=== PATIENT | male | born 1965 | race Caucasian/White ===

== ENCOUNTER 2019-04-17 10:29 | Emergency (ER) | payer BC, OTHER ==
[2019-04-17 10:38] VITALS: TEMP 98.5; BMI 26.2
--- NOTE | 2019-04-17 10:43 | PDOC ---
History of Present Illness - General Chief Complaint: Pain, Acute Stated Complaint: LEFT FLANK PAIN Time Seen by Provider: 04/17/19 10:35 - History of Present Illness Initial Comments: 04/17/19 11:01 54yo male with L low back and L flank pain since night. States he was in bed when the pain started. States pain to L flank and L low back and radiates around to the L groin. No testicular or penile pain. States he thought he pulled his back and took motrin this am for the pain. States pain improved slightly but still with the pain. No loss of control of bowel or bladder. No midline pain or injury. No hip pain. No paresthesias, numbness/tingling, weakness to legs. No signs of cuade equina. Pt denies rashes. Pt states he also has urinary hesitancy. Denies hematuria or dysuria. No vomiting. Had a normal bm this AM. No f/c. No prior episodes of similar. Pt denies cp/sob. This am pain still present and radiating around to the groin - assoc with nausea, no vomiting. Pmhx: depression, migraine krishnamurthy pshx: cervical fusion all: nkda social: no tobacco, no drugs, no etoh Past History - Past Medical History Allergies/Adverse Reactions: Allergies Allergy/AdvReac Type Severity Reaction Status Date / Time No Known Allergies Allergy Verified 04/17/19 10:30 Home Medications: Ambulatory Orders Bupropion HCl [Wellbutrin -] 150 mg PO DAILY 07/28/16 Methocarbamol [Robaxin -] 500 mg PO BID PRN #14 tablet 04/17/19 Oxycodone HCl/Acetaminophen [Percocet 5-325 mg Tablet] 1 tab PO Q6H PRN #10 tablet MDD 4 tabs 04/17/19 Sertraline HCl [Zoloft -] 0 mg PO DAILY 04/17/19 propRANOLol HCL [Inderal] 10 mg PO DAILY 04/17/19 COPD: No CHF: No Psychiatric Problems: Yes (ANXIETY, DEPRESSION) - Suicide/Smoking/Psychosocial Hx Smoking History: Never smoked Hx Alcohol Use: No Drug/Substance Use Hx: No Review of Systems - Review of Systems Able to Perform ROS?: Yes Is the patient limited Yi proficient: No Constitutional: No: Chills, Fever HEENTM: No: Nose Pain, Throat Pain, Throat Swelling Respiratory: No: Cough, Shortness of Breath Cardiac (ROS): No: Chest Pain, Palpitations ABD/GI: Yes: Nausea, Other (L flank pain). No: Constipated, Diarrhea, Vomiting : Yes: Flank Pain, Other (urinary hesitancy). No: Burning, Dysuria, Hematuria Musculoskeletal: Yes: Back Pain. No: Neck Pain Integumentary: No: Rash Neurological: No: Headache, Numbness, Paresthesia, Weakness, Unsteady Gait, Ataxia All Other Systems: Reviewed and Negative *Physical Exam - Vital Signs Last Vital Signs Temp Pulse Resp BP Pulse Ox 98.5 F 53 L 18 135/81 100 04/17/19 10:30 04/17/19 10:30 04/17/19 10:30 04/17/19 10:30 04/17/19 10:30 - Physical Exam General Appearance: Yes: Nourished, Appropriately Dressed. No: Apparent Distress HEENT: positive: EOMI, Normal Voice Neck: positive: Supple, Other (midline c spine incision well healed and approximated) Respiratory/Chest: positive: Lungs Clear, Normal Breath Sounds. negative: Respiratory Distress Cardiovascular: positive: Regular Rhythm, Regular Rate, S1, S2. negative: Edema Gastrointestinal/Abdominal: positive: Normal Bowel Sounds, Soft. negative: Guarding, Rebound, Tenderness Musculoskeletal: positive: Normal Inspection, Other (no ttp SI joints, no paraspinal ttp). negative: CVA Tenderness, Decreased Range of Motion, Vertebral Tenderness Extremity: positive: Normal Capillary Refill, Normal Inspection, Normal Range of Motion. 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 negative: Numbness, Sensory Deficit ED Treatment Course - LABORATORY CBC & Chemistry Diagram: 04/17/19 11:10 04/17/19 11:10 Medical Decision Making - Medical Decision Making 04/17/19 11:06 a/p: 54yo male with L flank/low back pain -concern for MSK pain vs renal colic -will send labs, ua -will medicate for nausea and pain -if ua shows blood or pain not improved with Toradol will obtain spiral ct -negative straight leg raises -sensation, muscle strength intact distally -no signs/symptoms of caude equina, no mildine ttp -no red flags 04/17/19 12:07 ua clear labs reviewed pt states still in pain and nausea will obtain ct abd/pelvis with iv contrast to eval L flank pain and LUQ pain 04/17/19 13:52 ct shows renal cyst shows distal t spine djd and l spine djd discussed ct findings in full details pt given robaxin will monitor and reassess pt states feeling better after morphine and just received robaxin 04/17/19 14:21 pt stable for dc to home *DC/Admit/Observation/Transfer Diagnosis at time of Disposition: Low back pain, DJD (degenerative joint disease) - Discharge Dispostion Disposition: HOME Condition at time of disposition: Stable Decision to Admit order: No - Prescriptions Prescriptions: Methocarbamol [Robaxin -] 500 mg PO BID PRN #14 tablet PRN Reason: Muscle Spasms Oxycodone HCl/Acetaminophen [Percocet 5-325 mg Tablet] 1 tab PO Q6H PRN #10 tablet MDD 4 tabs PRN Reason: Pain - Referrals Referrals: Emmanuel Ware [Primary Care Provider] - Steven Farrell MD, [facility] [Staff Physician] - - Patient Instructions Printed Discharge Instructions: DI for Low Back Pain Additional Instructions: Please take all medications as prescribed. Please make an appointment this week to see the back specialist - Dr. Farrell. Please do not drive or operate heavy machinery while taking the percocet. Please use epson salt in the bath. Please make an appointment to see your PMD this week. If you develop any worsening back pain, numbness, tingling, weakness, or loss of control of your bowel or bladder please return to the ED immediately. - Post Discharge Activity
[2019-04-17] MEDS ORDERED: ONDANSETRON 4 MG/2 ML VIAL IVPUSH ONE (10:51)
[2019-04-17] MEDS ORDERED: SODIUM CHLORIDE 0.9% 1000 ML INFUS.BAG IV ONE (10:51)
[2019-04-17] MEDS ORDERED: KETOROLAC TROMETHAMINE 30 MG/1 ML VIAL IVPUSH ONE (10:51)
[2019-04-17] MEDS ORDERED: KETOROLAC TROMETHAMINE 30 MG/1 ML VIAL ONE (11:05)
[2019-04-17] MEDS ORDERED: ONDANSETRON 4 MG/2 ML VIAL ONE (11:05)
[2019-04-17 11:22] LABS: EOS % 4.2 % (0-4.5); HEMOGLOBIN 13.7 GM/dl (11.7-16.9); LYMPH % 23.4 % (8-40); MCH 29.7 pg (25.7-33.7); MCHC 34.2 g/dl (32.0-35.9); MEAN PLT VOLUME 8.1 fl (7.5-11.1); MONO % 7.8 % (3.8-10.2); NEUT % 63.6 % (42.8-82.8); PLATELET COUNT 211 K/MM3 (134-434); RDW 12.2 % (11.9-15.9); WHITE BLOOD COUNT 5.5 K/mm3 (4.0-10.8)
[2019-04-17 11:29] LABS: ALBUMIN 3.9 g/dl (3.4-5.0); BILIRUBIN,TOTAL 0.7 mg/dl (0.2-1); CALCIUM 8.9 mg/dl (8.5-10); CREATININE 0.8 mg/dl (0.55-1.3); POTASSIUM 4.3 mmol/L (3.5-5.1)
[2019-04-17] MEDS ORDERED: morphine CARPU-JECT 4 MG/1 ML DISP.SYRIN IVPUSH ONE (12:05)
[2019-04-17] MEDS ORDERED: METOCLOPRAMIDE HCL INJECTION 10 MG/2 ML VIAL IVPUSH ONE (12:05)
[2019-04-17] MEDS ORDERED: morphine SULFATE 4 MG/ML VIAL ONE (12:06)
[2019-04-17] MEDS ORDERED: METOCLOPRAMIDE HCL INJECTION 10 MG/2 ML VIAL ONE (12:06)
[2019-04-17] MEDS ORDERED: METHOCARBAMOL 500 MG TABLET PO ONE (13:33)
[2019-04-17] MEDS ORDERED: METHOCARBAMOL 500 MG TABLET ONE (13:37)
[2019-04-17 14:35] VITALS: BP 105/64; PULSE 59
== END 2019-04-17 14:36 | disposition home or self-care (01) ==
LOC: FER 10:29
PROC: 3E0337Z Introduction of Electrolytic and Water Balance Substance into Peripheral Vein, Percutaneous Approach (ICD-10-PCS; principal; 2019-04-17)
PROC: 3E0333Z Introduction of Anti-inflammatory into Peripheral Vein, Percutaneous Approach (ICD-10-PCS; 2019-04-17)
PROC: 3E033GC Introduction of Other Therapeutic Substance into Peripheral Vein, Percutaneous Approach (ICD-10-PCS; 2019-04-17)
PROC: 3E033NZ Introduction of Analgesics, Hypnotics, Sedatives into Peripheral Vein, Percutaneous Approach (ICD-10-PCS; 2019-04-17)
DX: M19.90 Unspecified osteoarthritis, unspecified site (principal); M54.5 Low back pain
CPT/HCPCS: 36415; 74177-TC; 80053; 81003; 85025; 99283-25; J7030